=== PATIENT | female | born 1950 | race Caucasian/White ===

== ENCOUNTER 2019-06-05 14:00 | Emergency (ER) | payer MEDICARE ==
[~2019-06-05] VITALS: Ht 170.2 cm; Wt 75.9 kg
[2019-06-05 14:22] VITALS: Ht 170.2 cm; Wt 75.9 kg
[2019-06-05] MEDS ORDERED: SYNTHROID25 MCG (14:24)
[2019-06-05] MEDS ORDERED: LISINOPRIL2.5 MG (14:24)
[2019-06-05] MEDS ORDERED: ANTIDEPRESSANT (14:25)
[2019-06-05 15:07] LABS: BASOPHILS 0.1 % (0-2); EOSINOPHILS 0.1 % (0-7); HEMATOCRIT 41.9 % (36.0-48.0); IMMATURE GRANULOCYTES 0.3 % (0-5); MCH 32.9 pg (26.0-34.0); MCHC 33.4 g/dL (31.0-37.0); MCV 98.4 fL (80.0-100.0); MEAN PLATELET VOLUME 10.2 fL (7.4-10.4); MONOCYTES 1.6 % (2-11); NEUTROPHILS 85.9 % (40-80); PLATELET COUNT 212 10x3/uL (130-400); RBC 4.26 10x6/uL (4.00-5.40); RDW 13.3 % (11.5-14.5); WBC 7.5 10x3/uL (4.8-10.8)
[2019-06-05 15:16] LABS: CALCIUM 9.1 mg/dL (8.5-10.1); CARBON DIOXIDE 30.1 mmol/L (21.0-32.0); POTASSIUM - SERUM 4.1 mmol/L (3.5-5.1)
[2019-06-05 15:22] LABS: ALBUMIN 3.9 g/dL (3.4-5.0); BILIRUBIN - TOTAL 0.31 mg/dL (0.2-1.3); PROTEIN - SERUM 7.1 g/dL (6.4-8.2)
[2019-06-05 16:54] VITALS: BP 132/71
== END 2019-06-05 16:54 | disposition home or self-care (01) ==
LOC: D.ER 14:00 → EDBD 14:00 → D.ER 16:54
PROVIDERS: Family Medicine
DX: R04.0 Epistaxis (principal); J32.9 Chronic sinusitis, unspecified; E07.9 Disorder of thyroid, unspecified; I10 Essential (primary) hypertension